=== PATIENT | female | born 1995 | race Hispanic/Latino ===

== ENCOUNTER 2018-07-17 11:36 | Observation (INO) | payer MEDICAID, OTHER ==
[~2018-07-17] VITALS: Ht 157.5 cm; Wt 67.1 kg
[2018-07-17 12:19] LABS: APPEARANCE,URINE Clear (CLEAR); BILIRUBIN,URINE Negative (NEGATIVE); COLOR,URINE Yellow (YELLOW); GLUCOSE, URINE (UA) Negative (NEGATIVE); KETONES,URINE 15 mg/dL (NEGATIVE); LEUKOCYTE ESTERASE ,URINE Trace (NEGATIVE); NITRATE,URINE Negative (NEGATIVE); OCCULT BLOOD,URINE Negative (NEGATIVE); PH,URINE 6.5 (5.0-8.0); PROTEIN,URINE Negative (NEGATIVE)
[2018-07-17 12:45] LABS: BACTERIA,URINE Few /HPF (None Seen); MUCUS,URINE Moderate LPF (None Seen); RBC,URINE 0-1 /HPF (0-1); SQUAMOUS EPITHELIAL CELL,UR Few /HPF (0-2)
[2018-07-17] MEDS ORDERED: LACTATED RINGERS 1000ML 1,000 ML IV SCH (12:45)
[2018-07-17] MEDS ORDERED: CEFTRIAXONE SODIUM 1 GM IVP SCH (13:00)
== END 2018-07-17 14:50 | disposition home or self-care (01) ==
LOC: LAB 11:36 → EDSTATUS 11:37 → LDH 11:49
PROVIDERS: ADMIT Obstetrics & Gynecology; ATTEND Obstetrics & Gynecology
DX: O36.8120 Decreased fetal movements, second trimester, not applicable or unspecified (principal); Z3A.27 27 weeks gestation of pregnancy
CPT/HCPCS: 81001; 96374; G0378 ×4; J0696; J7120; 96360; 96361